=== PATIENT | female | born 1970 | race African-American/Black ===

== ENCOUNTER 2016-10-22 11:19 | Emergency (ER) | payer OTHER ==
[~2016-10-22] VITALS: Ht 160 cm; Wt 70.3 kg
[2016-10-22 11:40] VITALS: BP 138/89
[2016-10-22] MEDS ORDERED: BACITRACIN-P28.35 GM TP (13:03)
--- NOTE | 2016-10-22 13:03 | Emergency Room Report ---
History of Present Illness General Chief Complaint: Laceration Source: Patient Present Illness Allergies: Coded Allergies: No Known Allergies (Unverified , 10/22/16) Patient History Last Menstrual Period: partial hysterectomy Now: No : 6 Para: 5 Nursing Documentation-[facility] Past Medical History: No Stated History Hx Hypertension: Yes Physical Exam Vital Signs Date Time Temp Pulse Resp B/P (MAP) Pulse Ox O2 Delivery O2 Flow Rate FiO2 10/22/16 11:28 97.3 67 16 138/89 98 Room Air Medical Decision Making Diagnostic Impression: Primary Impression: Laceration Last Vital Signs Date Time Temp Pulse Resp B/P (MAP) Pulse Ox O2 Delivery O2 Flow Rate FiO2 10/22/16 11:40 97.3 16 138/89 98 Room Air 10/22/16 11:28 67 Disposition: HOME, SELF-CARE Condition: Stable Patient Instructions: Nonsutured Laceration Care Additional Instructions: Take medications as directed. Follow up with a Primary Care Provider in 3-5 days, even if your symptoms have resolved. --Please review list of primary care clinics, if you do not already have a primary care provider Return sooner to ED if new symptoms occur, or current symptoms become worse. - Please note that this Emergency Department Report was dictated using [employer] intern technology software, occasionally this can lead to erroneous entry secondary to interpretation by the dictation equipment. Tracie Holbrook Oct 22, 2016 13:03
[2016-10-22] MEDS ORDERED: Tetanus/Diptheria/Pertussis Vaccine 0.5ml Syr IM ONE (13:15)
[2016-10-22 13:33] VITALS: BP 127/78
== END 2016-10-22 13:33 | disposition home or self-care (01) ==
LOC: EMR 13:26
DX: S61.411A Laceration without foreign body of right hand, initial encounter (principal); Z23 Encounter for immunization; Z90.710 Acquired absence of both cervix and uterus; I10 Essential (primary) hypertension; X58.XXXA Exposure to other specified factors, initial encounter; Y93.9 Activity, unspecified; Y92.9 Unspecified place or not applicable
CPT/HCPCS: 90471; 90715; 99284